=== PATIENT | male | born 1970 | race Caucasian/White ===

== ENCOUNTER → 2019-01-31 | Outpatient (CLI) | payer OTHER ==
--- NOTE | 2019-01-31 12:37 | PCVCIMAG ---
APPROVED REPORT Study performed: 01/31/2019 11:24:38 Exam: Stress Echocardiogram Indication: Hyperlipidemia, Hypertension, Chest pressure Stress Nurse: Melody Monroe RN Status: routine Ht: 5 ft 7 in HR: 71 bpm BP: 118/88 mmHg Rhythm: NSR Medical History Medical History: Sleep apnea Procedure The patient underwent an Exercise Stress Test using the Josesito Protocol. Blood pressure, heart rate, and EKG were monitored. An Echocardiogram was performed by edger technician in four stages in quad fashion. At peak stress, four selected images were obtained and placed side by side with resting images for comparison. Stress Test Details Stress Test: Exercise stress testing was performed using a Josesito protocol. HR Resting HR: 71 bpmMax Heart Rate (APMHR): 170 bpm Max HR Achieved: 181 bpmTarget HR (85% APMHR): 144 bpm % of APMHR: 106 Recovery HR: 110 bpm HR response to stress: Normal HR response to stress BP Resting BP: 118/88 mmHg Max BP: 190/80 mmHg Recovery BP: 144/82 mmHg BP response to stress: Normal blood pressure response to stress. ECG Resting ECG: Sinus Rhythm Stress ECG: Sinus Rhythm ST Change: Normal Maximum ST Deviation: 0 mm Arrhythmia: None Recovery ECG: Sinus Rhythm Recovery ST Change: Normal Recovery ST Deviation: 0 mm Recovery Arrhythmia: None Clinical Reason for Termination: Maximal effort Exercise duration: 9 min 06 sec Highest Stage Achieved: Stage 3: 3.4 mph at 14% grade. Exercise capacity: 10.40 METs Overall Exercise Capacity for Age: Normal Angina Score: None Stress ECG Conclusion Clinical: Non-ischemic ECG: Non-ischemic Spencer Treadmill Score is 9.0 which is Low risk. Pre-Stress Echo The resting Echocardiogram showed normal left ventricular contractility with an estimated Ejection Fraction of about 55-60%. Normal wall motion in all segments on baseline images. Post-Stress Echo The stress Echocardiogram showed normal left ventricular contractility with an estimated Ejection Fraction of about 60-65%. Normal augmentation of wall motion in all segments on post stress images. Clinical No clinical or ECG evidence for ischemia. Conclusion Clinical Response: Non-ischemic Exercise Capacity: Average Stress ECG Response: Non-ischemic Stress Echo Images: Non-ischemic The left ventricle is normal in size and wall thickness in both the rest and stress images. Other Information Study Quality: Adequate <Conclusion> The left ventricle is normal in size and wall thickness in both the rest and stress images.
== END | disposition home or self-care (01) ==
LOC: PCVCIMAG 10:54
PROVIDERS: ATTEND Internal Medicine
DX: I10 Essential (primary) hypertension (principal); E78.5 Hyperlipidemia, unspecified; R07.89 Other chest pain
CPT/HCPCS: 93325; 93351